=== PATIENT | male | born 1995 | race Caucasian/White ===

== ENCOUNTER 2019-09-29 13:31 | Emergency (ER) | payer OTHER, SELFPAY ==
[2019-09-29 13:33] VITALS: BP 123/61; PULSE 64; RESP 17; TEMP 36.2; O2SAT 96; BMI 27.2
--- NOTE | 2019-09-29 13:48 | ED.RN ---
CALLED SURGE STAFFING AT [phone] TO VERIFY IF PT NEEDS DRUG SCREEN. THEY SAID YES.
--- NOTE | 2019-09-29 14:15 | RAD_ITS ---
STUDY: X-RAY - LEFT SHOULDER REASON FOR EXAM: Male, 24 years old. LEFT ARM PAIN WHILE WORKING TECHNIQUE: 4 view(s) of the shoulder. COMPARISON: None. FINDINGS: Normal glenohumeral articulation. Normal acromioclavicular joint. Normal acromion. Normal humeral head and visualized proximal humerus. The soft tissue structures are unremarkable. Normal visualized pulmonary apex. RAD/Shoulder min 2 Views IMPRESSION: Normal x-ray examination of the shoulder. Electronically Signed: Benito Aguiar MD at 14:40 EDT , Service support ,
--- NOTE | 2019-09-29 14:20 | ED.DCSUM_ITS ---
- ER Visit Summary Date of Service: 09/29/19 Chief Complaint: Left shoulder pain History of Present Illness: The patient is a 24 M who presents with left shoulder pain that began 2 days ago. Patient states he was doing some lifting at work when he felt the pain. Patient states he did not report the injury until today. Patient states that it is worse with movement and lifting things. Patient admits to some tingling in his left upper arm. Patient describes his pain as aching. Patient denies any weakness. Patient denies any clicking or popping sensation. Patient does admit to some pain going up towards his neck on the left side. Patient denies any other injuries. Physical Examination: Vital signs are stable. Patient is afebrile. Patient is in no acute distress. Musculoskeletal exam reveals tenderness over the posterolateral aspect of the left shoulder. There is no bony crepitance or step-off. There is no deformity noted. Range of motion was limited in external rotation, abduction, and flexion secondary to pain. Strength is 5/5 bilaterally in upper extremities. There are no sensory deficits noted. There is no weakness with resistive abduction. Radial pulses are equal bilaterally. Sensation was intact to light touch in the radial, median, ulnar, and axillary areas. Test Results: X-rays of the left shoulder were obtained. There is no acute fracture or dislocation. This was interpreted by the radiologist and myself. Emergency Department Course and Treatment: Patient was given an ice pack. Patient was instructed to ice and elevate the left shoulder. Patient was given restrictions for work. Patient was instructed to take ibuprofen as needed for pain. Patient was instructed to follow-up with [facility] or his primary care physician in 5 to 7 days. Patient understood and was agreeable with the plan. All questions were answered. Disposition: Discharge home Impression: Muscle strain left shoulder This note was generated with [employer] dictation software. It may contain incorrect words, spelling, and punctuation that were not noted in review of the chart prior to signing ED Disposition - Plan for ED Patient: Disposition: Home or Assisted Living Diagnosis: Muscle strain of left shoulder region Instructions: ED Shoulder Sprain Referrals: [facility] [GROUP OF PHYSICIANS] -
[2019-09-29 14:55] VITALS: RESP 16
== END 2019-09-29 15:34 | disposition home or self-care (01) ==
PROVIDERS: Emergency Provider Emergency Medicine
DX: S46.912A Strain of unspecified muscle, fascia and tendon at shoulder and upper arm level, left arm, initial encounter (principal); X50.9XXA Other and unspecified overexertion or strenuous movements or postures, initial encounter; Y93.89 Activity, other specified; Y92.89 Other specified places as the place of occurrence of the external cause; Y99.0 Civilian activity done for income or pay; F17.220 Nicotine dependence, chewing tobacco, uncomplicated
CPT/HCPCS: 73030; 99282